=== PATIENT | female | born 1965 | race African-American/Black ===

== ENCOUNTER 2016-11-21 16:11 | Inpatient (IN) | payer OTHER ==
[2016-11-21 16:48] VITALS: BMI 21.6
--- NOTE | 2016-11-21 20:08 | HP ---
Admission ROS [facility] Chief Complaint: SEEKING REHAB SERVICES Allergies/Adverse Reactions: Allergies Allergy/AdvReac Type Severity Reaction Status Date / Time No Known Allergies Allergy Verified 11/21/16 19:28 History of Present Illness: 51 Y.O. FEMALE WITH HISTORY OF ALCOHOL, HEROIN, CRACK-COCAINE AND KLONOPIN DEPENDENCE IS HERE SEEKING REHAB SERVICES. SHE REPORTS SHE LAST COMPLETED DETOX /REHAB IN 2014. SHE IS CURRENTLY ENROLLED IN [facility]. SHE REPORTS HAVING A 3 YR HISTORY OF SOBRIETY. Exam Limitations: No Limitations - Ebola screening Have you traveled outside of the country in the last 21 days: No (N) Have you had contact with anyone from an Ebola affected area: No Have you been sick,other than usual withdrawal symptoms: No Do you have a fever: No - Review of Systems Constitutional: Loss of Appetite, Unintentional Wgt. Loss EENT: reports: Blurred Vision, Double Vision Respiratory: reports: Shortness of Breath Cardiac: reports: Lightheadedness GI: reports: Nausea : reports: No Symptoms Reported Musculoskeletal: reports: Back Pain Integumentary: reports: No Symptoms Reported Neuro: reports: Numbness Endocrine: reports: No Symptoms Reported Hematology: reports: No Symptoms Reported Psychiatric: reports: Mood/Affect Appropiate, Orientated x3, Anxious, Depressed , other (BIPOLAR) Other Systems: Reviewed and Negative Patient History - Patient Medical History Hx Anemia: No Hx Asthma: Yes Hx Chronic Obstructive Pulmonary Disease (COPD): No Hx Cancer: No Hx Cardiac Disorders: No Hx Congestive Heart Failure: No Hx Hypertension: No Hx Hypercholesterolemia: No Hx Pacemaker: No HX Cerebrovascular Accident: No Hx Seizures: Yes (LAST SEZUIRE WAS 6 MONTHS AGO ) Hx Dementia: No Hx Diabetes: No Hx Gastrointestinal Disorders: Yes (GERD ) Hx Liver Disease: No Hx Genitourinary Disorders: No Hx Sexually Transmitted Disorders: No Hx Renal Disease (ESRD): No Hx Thyroid Disease: No Hx Human Immunodeficiency Virus (HIV): No Hx Hepatitis C: Yes Hx Depression: Yes Hx Suicide Attempt: No Hx Bipolar Disorder: Yes Hx Schizophrenia: No - Patient Surgical History Past Surgical History: Yes Hx Section: Yes Anesthesia Reaction: Yes - PPD History Previous Implant?: Yes Documented Results: Negative w/o proof PPD to be Administered?: Yes - Reproductive History Patient is a Female of Child Bearing Age (11 -55 yrs old): Yes Last Menstrual Period: 11/05/15 Patient : No - Smoking Cessation Smoking history: Current every day smoker Have you smoked in the past 12 months: Yes Aproximately how many cigarettes per day: 20 Hx Chewing Tobacco Use: No Initiated information on smoking cessation: Yes 'Breaking Loose' booklet given: 11/21/16 - Substance & Tx. History Hx Alcohol Use: Yes Hx Substance Use: Yes Substance Use Type: Alcohol, Cocaine, Heroin Hx Substance Use Treatment: Yes (DETOX AND REHAB IN 2014) - Substances Abused Alcohol Frequency: Daily Amount used: 1/2 PIND OF LIQUOR Age of first use: 19 Date of Last Use: 11/20/16 Crack Route: Smoking Frequency: Daily Amount used: $100 Age of first use: 21 Date of Last Use: 11/20/16 Heroin Route: Injection Frequency: Daily Amount used: 7 BAGS Age of first use: 21 Date of Last Use: 11/20/16 Benzodiazepine (Klonopin) Route: Oral Frequency: Daily Amount used: UNSURE Age of first use: 21 Date of Last Use: 11/20/16 Family Disease History - Family Disease History Family Disease History: [place]: Grandparent Admission Physical Exam [facility] - Vital Signs Vital Signs: Vital Signs - 24 hr 11/21/16 16:41 Temperature 98.1 F Pulse Rate 60 Respiratory 18 Rate Blood Pressure 100/62 - Physical General Appearance: Yes: Disheveled, Thin HEENTM: Yes: Hearing grossly Normal, Normocephalic, Normal Voice Respiratory: Yes: Chest Non-Tender, Lungs Clear, Normal Breath Sounds, No Respiratory Distress, No Accessory Muscle Use Breast: Yes: Breast Exam Deferred Cardiology: Yes: Regular Rhythm, Regular Rate Abdominal: Yes: Normal Bowel Sounds, Non Tender, Flat Genitourinary: Yes: Other (NO COMPLAINTS REPORTED) Musculoskeletal: Yes: full range of Motion, Gait Steady Extremities: Yes: Normal Capillary Refill, Normal Inspection, Normal Range of Motion, Non-Tender Neurological: Yes: director biology II-XII NML intact, Fully Oriented, Alert, Motor Strength 5/5, Normal Mood/Affect Integumentary: Yes: Normal Color, Dry, Warm Lymphatic: Yes: Within Normal Limits - Diagnostic (1) Asthma Current Visit: Yes Status: Chronic (2) GERD (gastroesophageal reflux disease) Current Visit: Yes Status: Chronic (3) Seizure Current Visit: Yes Status: Chronic (4) Alcohol dependence with uncomplicated withdrawal Current Visit: Yes Status: Chronic (5) Opioid dependence on agonist therapy Current Visit: Yes Status: Chronic (6) Sedative, hypnotic or anxiolytic dependence with withdrawal, uncomplicated Current Visit: Yes Status: Chronic (7) Cannabis dependence, uncomplicated Current Visit: Yes Status: Chronic Cleared for Admission [facility] - Detox or Rehab [facility] Level of Care: Observation Bed Claeared for Rehab Admission: Yes [facility] Breath Alcohol Content Breath Alcohol Content: 0 Urine Pregancy Test - Result Urine Test Results: Negative- NO Line Present Urine Drug Screen - Results Drug Screen Negative: No Urine Drug Screen Results: KEENAN-Cocaine, OPI-Opiates, MTD-Methadone
[2016-11-21] MEDS ORDERED: hydrOXYzine PAMOATE 50 MG CAPSULE (FP) PO PRN (20:29)
[2016-11-21] MEDS ORDERED: guaiFENesin/D-METHORPHAN HB 10 ML UNIT-DOSE CUPS PO PRN (20:29)
[2016-11-21] MEDS ORDERED: LOPERAMIDE HCL 2 MG CAPSULE PO PRN (20:29)
[2016-11-21] MEDS ORDERED: MAGNESIUM CITRATE 300 ML BOTTLE PO PRN (20:29)
[2016-11-21] MEDS ORDERED: MENTHOL/PHENOL 1 EACH UD MM PRN (20:29)
[2016-11-21] MEDS ORDERED: MAGNESIUM HYDROX 2400MG/30ML ORAL SUSPENSION 30 ML CUP PO PRN (20:29)
[2016-11-21] MEDS ORDERED: P-EPHED 60MG/TRIPROLIDI 2.5MG TABLET PO PRN (20:29)
[2016-11-21] MEDS ORDERED: MAG HYDROX/AL HYDROX/SIMETH 30 ML UNIT-DOSE CUP PO PRN (20:29)
[2016-11-21] MEDS ORDERED: NICOTINE POLACRILEX 2 MG GUM BC PRN (20:29)
[2016-11-21] MEDS ORDERED: ACETAMINOPHEN 325 MG TABLET (FP) PO PRN (20:29)
[2016-11-21] MEDS ORDERED: ALBUTEROL SO4 6.7 GM HFA INHALER IH PRN (20:33)
[2016-11-21] MEDS ORDERED: TUBERCULIN PPD 5 TU/0.1ML VIAL ID ONE (23:03)
[2016-11-21] MEDS: THIAMINE HCL 100 MG TABLET (FP) PO SCH (23:07)
[2016-11-21] MEDS: levETIRAcetam 500 MG TABLET (FP) PO SCH (23:07)
[2016-11-22] MEDS ORDERED: PT OWN MED DRAWER 7, Y5N ONE (07:54)
[2016-11-22] MEDS ORDERED: METHADONE HCL 40 MG DISPERSABLE TABLET ONE (08:11)
[2016-11-22] MEDS ORDERED: METHADONE HCL 10 MG TABLET ONE (08:11)
[2016-11-22] MEDS: METHADONE 40 MG, METHADONE 30 MG PO SCH (08:12)
[2016-11-22] MEDS: NICOTINE 21 MG/24 HOURS TOPICAL PATCH TD SCH (09:53)
[2016-11-22] MEDS: levETIRAcetam 500 MG TABLET (FP) PO SCH ×2 (09:53→21:24)
[2016-11-22] MEDS: PRENATAL VITAMINS W/ FOLIC ACID TABLET (FP) PO SCH (09:53)
[2016-11-22] MEDS ORDERED: PNEUMOC 13-VAL CONJ-DIP CRM/PF 0.5 ML DISP.SYRIN IM ONE (12:00)
[2016-11-22 13:44] LABS: MCH 28.7 pg (25.7-33.7); MCHC 32.9 g/dl (32.0-36.0); MEAN CELL VOLUME 87.1 fl (80-96); MEAN PLT VOLUME 9.3 fl (7.5-11.1); PLATELET COUNT 96 K/MM3 (134-434); RDW 13.8 % (11.6-15.6); WHITE BLOOD COUNT 2.8 K/mm3 (4.0-10.0)
[2016-11-22 13:58] LABS: ALBUMIN 2.5 g/dl (3.4-5.0); ANION GAP 6 (8-16); BILIRUBIN,TOTAL 0.5 mg/dL (0.2-1.0); CALCIUM 8.2 mg/dL (8.5-10.1); CO2 29 mmol/L (21-32); CREATININE 0.9 mg/dL (0.55-1.02); GLUCOSE,RANDOM 88 mg/dL (74-106); SGOT/AST 103 U/L (15-37); SGPT/ALT 78 U/L (12-78); TOT PROT 6.3 g/dl (6.4-8.2)
[2016-11-22 13:59] LABS: ALK PHOS 126 U/L (45-117)
[2016-11-22 14:17] LABS: HIV 1 & 2 AB NEGATIVE; HIV 1 AGp24 NEGATIVE
[2016-11-22] MEDS: diphenhydrAMINE HCL 25 MG CAPSULE (FP) PO PRN ×2 (14:27→20:07)
--- NOTE | 2016-11-22 19:47 | PN ---
Ayesha Progress Note Note: Psychiatry Attending's county extension agent note : Met with patient. Ms Davis requests orders for trazodone and citalopram. Patient endorses MDD and chronic insomnia. OPD care provided at [facility] in [facility]. Managed by psychiatrist,Dr Parson. Action : Trazodone 50 mg po hs Celexa 10 mg po daily. Side effects/benefits discussed with patient. She is agreable with [facility].
[2016-11-22] MEDS: traZODone HCL 50 MG TABLET (FP) PO SCH (21:24)
[2016-11-22] MEDS: THIAMINE HCL 100 MG TABLET (FP) PO SCH (21:24)
[2016-11-23] MEDS ORDERED: METHADONE HCL 40 MG DISPERSABLE TABLET ONE (05:56)
[2016-11-23] MEDS ORDERED: METHADONE HCL 10 MG TABLET ONE (05:56)
[2016-11-23] MEDS ORDERED: METHADONE HCL 40 MG DISPERSABLE TABLET PO SCH (06:00)
[2016-11-23] MEDS: diphenhydrAMINE HCL 25 MG CAPSULE (FP) PO PRN ×3 (06:56→19:48)
[2016-11-23] MEDS: METHADONE 40 MG, METHADONE 30 MG PO SCH (06:56)
--- NOTE | 2016-11-23 08:11 | EKG ---
Test Reason : Blood Pressure : / mmHG Vent. Rate : 043 BPM Atrial Rate : 043 BPM P-R Int : 176 ms QRS Dur : 086 ms QT Int : 478 ms P-R-T Axes : 077 064 058 degrees QTc Int : 403 ms MARKED SINUS BRADYCARDIA POSSIBLE LEFT ATRIAL ENLARGEMENT ABNORMAL ECG NO PREVIOUS ECGS AVAILABLE Confirmed by TORSTEN GARCIA MD ([id number]) on 11/23/2016 8:10:55 AM Referred By: Confirmed By:TORSTEN GARCIA MD
[2016-11-23 09:19] LABS: URINE APPEARANCE CLOUDY; URINE BILIRUBIN NEGATIVE (NEGATIVE); URINE BLOOD NEGATIVE (NEGATIVE); URINE COLOR YELLOW; URINE GLUCOSE (UA) NEGATIVE (NEGATIVE); URINE KETONE NEGATIVE (NEGATIVE); URINE LEUK ESTERASE TRACE (NEGATIVE); URINE NITRITE NEGATIVE (NEGATIVE); URINE PROTEIN NEGATIVE (NEGATIVE)
[2016-11-23 09:26] LABS: URINE BACTERIA RARE /hpf (NONE SEEN); URINE RBC 1 /hpf (0-3); URINE WBC 10 /hpf (3-5); YEAST FEW
[2016-11-23] MEDS: NICOTINE 21 MG/24 HOURS TOPICAL PATCH TD SCH (10:01)
[2016-11-23] MEDS: PRENATAL VITAMINS W/ FOLIC ACID TABLET (FP) PO SCH (10:02)
[2016-11-23] MEDS: levETIRAcetam 500 MG TABLET (FP) PO SCH ×2 (10:02→21:24)
[2016-11-23] MEDS: CITALOPRAM HYDROBROMIDE 10 MG TABLET (FP) PO SCH (10:02)
[2016-11-23] MEDS: THIAMINE HCL 100 MG TABLET (FP) PO SCH (21:24)
[2016-11-23] MEDS: traZODone HCL 50 MG TABLET (FP) PO SCH (21:24)
[2016-11-24] MEDS ORDERED: METHADONE HCL 10 MG TABLET ONE (05:42)
[2016-11-24] MEDS ORDERED: METHADONE HCL 40 MG DISPERSABLE TABLET ONE (05:43)
[2016-11-24] MEDS: METHADONE 40 MG, METHADONE 30 MG PO SCH (06:41)
[2016-11-24] MEDS: diphenhydrAMINE HCL 25 MG CAPSULE (FP) PO PRN (08:48)
[2016-11-24] MEDS: CITALOPRAM HYDROBROMIDE 10 MG TABLET (FP) PO SCH (09:49)
[2016-11-24] MEDS: levETIRAcetam 500 MG TABLET (FP) PO SCH ×2 (09:49→21:22)
[2016-11-24] MEDS: NICOTINE 21 MG/24 HOURS TOPICAL PATCH TD SCH (09:50)
[2016-11-24] MEDS: PRENATAL VITAMINS W/ FOLIC ACID TABLET (FP) PO SCH (09:50)
--- NOTE | 2016-11-24 13:22 | HP ---
Psychiatrist Admission - Data Date of interview: 11/24/16 Admission source: [facility] Identifying data: The patient is 51 yo AA female mother of 3 grown children,resides in [address],supported by [facility]. Medical History: Significant for Seizure disorder since 6 yo(head trauma),BA,H/ O Cellulitis,Hep C. Psychiatric History: Reports depressed mood ,anxiety for about 10-11 years .She was admitted to [facility] in 2014 due to severe depression,sleeping difficulties,mood instability.Patient was dx with Bipolar disorder.Patient placed on Zyprexa,Celexa,Trazodone.No more psychiatric hospoitalizations,just ER visits.Patient sees psychiatrist at [facility] in [place].Current medications:Trazodone 150 mg po hs,Celexa 10 mg po daily and Zyprexa 5 mg po hs. Physical/Sexual Abuse/Trauma History: denies Vital Signs: Vital Signs - 24 hr 11/24/16 11/24/16 11/24/16 00:30 03:30 07:28 Temperature 98.0 F Pulse Rate 51 L Respiratory 18 18 18 Rate Blood Pressure 103/71 Allergies/Adverse Reactions: Allergies Allergy/AdvReac Type Severity Reaction Status Date / Time No Known Allergies Allergy Verified 11/21/16 19:28 Date of last physical exam: 11/21/16 Concur with the findings of this exam: Yes - Substance Abuse/Tx History Hx Alcohol Use: Yes (drinking since 19 yo,1/2 pint of vodka daily) Hx Substance Use: Yes (crack/cocaine 21 yo,$100 daily,heroin iv since 30 yo,7 bags daily,klonopin ) Substance Use Type: Alcohol, Cocaine, Opiates, Tranquilizers Hx Substance Use Treatment: Yes (completed inpatient rehab [facility] in 2014 ) - Admission Criteria Previous failed treatment: Yes Poor recovery environment: Yes Comorbidities: Yes Lacks judgement: Yes Mental Status Exam - Mental Status Exam Alert and Oriented to: Time, Place, Person Cognitive Function: Grossly Intact Patient Appearance: Unkempt Mood: Sad, Anxious Affect: Mood Congruent, Labile Patient Behavior: Sedated, Fatigued, Cooperative Speech Pattern: Clear Voice Loudness: Normal Thought Process: Goal Oriented Thought Disorder: Not Present Hallucinations: Denies Suicidal Ideation: Denies Homicidal Ideation: Denies Insight/Judgement: Fair Sleep: Fair Appetite: Fair Muscle strength/Tone: Normal Gait/Station: Normal Psychiatric Findings - Problem List ([place] 1, 2,3) (1) Alcohol dependence with uncomplicated withdrawal Current Visit: Yes Status: Chronic (2) Asthma Current Visit: Yes Status: Chronic (3) Cannabis dependence, uncomplicated Current Visit: Yes Status: Chronic (4) GERD (gastroesophageal reflux disease) Current Visit: Yes Status: Chronic (5) Opioid dependence on agonist therapy Current Visit: Yes Status: Chronic (6) Sedative, hypnotic or anxiolytic dependence with withdrawal, uncomplicated Current Visit: Yes Status: Chronic (7) Bipolar II disorder Current Visit: Yes Status: Chronic - Initial Treatment Plan Initial Treatment Plan: Restart Celexa 10 mg po daily,Zyprexa 5 mg po hs, Trazodone 50 mg po hs.Will monitor progress.
[2016-11-24] MEDS: THIAMINE HCL 100 MG TABLET (FP) PO SCH (21:22)
[2016-11-24] MEDS: traZODone HCL 100 MG TABLET (FP) PO SCH (21:23)
[2016-11-24] MEDS: OLANZapine 5 MG TABLET PO SCH (21:24)
[2016-11-25] MEDS ORDERED: METHADONE HCL 10 MG TABLET ONE (03:04)
[2016-11-25] MEDS ORDERED: METHADONE HCL 40 MG DISPERSABLE TABLET ONE (03:04)
[2016-11-25] MEDS: METHADONE 40 MG, METHADONE 30 MG PO SCH (06:17)
[2016-11-25] MEDS: diphenhydrAMINE HCL 25 MG CAPSULE (FP) PO PRN ×2 (06:19→15:15)
[2016-11-25] MEDS: PRENATAL VITAMINS W/ FOLIC ACID TABLET (FP) PO SCH (09:48)
[2016-11-25] MEDS: levETIRAcetam 500 MG TABLET (FP) PO SCH ×2 (09:48→21:19)
[2016-11-25] MEDS: NICOTINE 21 MG/24 HOURS TOPICAL PATCH TD SCH (09:48)
[2016-11-25] MEDS: CITALOPRAM HYDROBROMIDE 10 MG TABLET (FP) PO SCH (09:49)
[2016-11-25] MEDS: THIAMINE HCL 100 MG TABLET (FP) PO SCH (21:19)
[2016-11-25] MEDS: diphenhydrAMINE HCL 50 MG CAPSULE PO PRN (21:19)
[2016-11-25] MEDS: traZODone HCL 100 MG TABLET (FP) PO SCH (21:20)
[2016-11-25] MEDS: OLANZapine 5 MG TABLET PO SCH (22:30)
[2016-11-26] MEDS ORDERED: METHADONE HCL 10 MG TABLET ONE (03:23)
[2016-11-26] MEDS ORDERED: METHADONE HCL 40 MG DISPERSABLE TABLET ONE (03:23)
[2016-11-26] MEDS: METHADONE 40 MG, METHADONE 30 MG PO SCH (06:56)
[2016-11-26] MEDS: diphenhydrAMINE HCL 25 MG CAPSULE (FP) PO PRN (06:57)
[2016-11-26] MEDS: levETIRAcetam 500 MG TABLET (FP) PO SCH ×2 (10:09→21:23)
[2016-11-26] MEDS: CITALOPRAM HYDROBROMIDE 10 MG TABLET (FP) PO SCH (10:09)
[2016-11-26] MEDS: NICOTINE 21 MG/24 HOURS TOPICAL PATCH TD SCH (10:09)
[2016-11-26] MEDS: PRENATAL VITAMINS W/ FOLIC ACID TABLET (FP) PO SCH (10:10)
--- NOTE | 2016-11-26 15:19 | PN ---
[facility] Progress Note Note: keppra level is 5.8 (low) P : Keppra 500mg po stat
[2016-11-26] MEDS ORDERED: levETIRAcetam 500 MG TABLET (FP) PO ONE (15:43)
[2016-11-26] MEDS: traZODone HCL 100 MG TABLET (FP) PO SCH (21:23)
[2016-11-26] MEDS: THIAMINE HCL 100 MG TABLET (FP) PO SCH (21:23)
[2016-11-26] MEDS: OLANZapine 5 MG TABLET PO SCH (21:24)
[2016-11-26] MEDS: diphenhydrAMINE HCL 50 MG CAPSULE PO PRN (21:24)
[2016-11-27] MEDS ORDERED: METHADONE HCL 40 MG DISPERSABLE TABLET ONE (03:24)
[2016-11-27] MEDS ORDERED: METHADONE HCL 10 MG TABLET ONE (03:24)
[2016-11-27] MEDS: METHADONE 40 MG, METHADONE 30 MG PO SCH (06:16)
[2016-11-27] MEDS: diphenhydrAMINE HCL 25 MG CAPSULE (FP) PO PRN ×2 (06:18→12:39)
[2016-11-27] MEDS: NICOTINE 21 MG/24 HOURS TOPICAL PATCH TD SCH (10:04)
[2016-11-27] MEDS: CITALOPRAM HYDROBROMIDE 10 MG TABLET (FP) PO SCH (10:05)
[2016-11-27] MEDS: levETIRAcetam 500 MG TABLET (FP) PO SCH ×2 (10:05→21:20)
[2016-11-27] MEDS: PRENATAL VITAMINS W/ FOLIC ACID TABLET (FP) PO SCH (10:05)
[2016-11-27] MEDS: traZODone HCL 100 MG TABLET (FP) PO SCH (21:20)
[2016-11-27] MEDS: THIAMINE HCL 100 MG TABLET (FP) PO SCH (21:20)
[2016-11-27] MEDS: diphenhydrAMINE HCL 50 MG CAPSULE PO PRN (21:21)
[2016-11-27] MEDS: OLANZapine 5 MG TABLET PO SCH (21:21)
[2016-11-28] MEDS ORDERED: METHADONE HCL 10 MG TABLET ONE (05:47)
[2016-11-28] MEDS ORDERED: METHADONE HCL 40 MG DISPERSABLE TABLET ONE (05:47)
[2016-11-28] MEDS: METHADONE 40 MG, METHADONE 30 MG PO SCH (06:17)
[2016-11-28] MEDS: diphenhydrAMINE HCL 25 MG CAPSULE (FP) PO PRN (06:19)
[2016-11-28] MEDS: PRENATAL VITAMINS W/ FOLIC ACID TABLET (FP) PO SCH (10:18)
[2016-11-28] MEDS: levETIRAcetam 500 MG TABLET (FP) PO SCH ×2 (10:18→21:29)
[2016-11-28] MEDS: CITALOPRAM HYDROBROMIDE 10 MG TABLET (FP) PO SCH (10:18)
[2016-11-28] MEDS: NICOTINE 21 MG/24 HOURS TOPICAL PATCH TD SCH (10:18)
--- NOTE | 2016-11-28 14:22 | PN ---
Psychiatric Progress Note Vital Signs: Vital Signs Period Temp Pulse Resp BP Sys/Caceres Pulse Ox Last 24 Hr 98.1 F 65 18-18 96/62 Date of Session: 11/28/16 Chief Complaint:: Sleep is still big issue,makes me anxious,torres. HPI: Patient addressed Alcohol,Cannabis,Opioid dependence comorbid with Bipolar II disorder. ROS: BA,GERD. Current Medications: Active Medications Generic Name Dose Route Start Last Admin Trade Name Freq PRN Reason Stop Dose Admin Acetaminophen 650 mg 11/21/16 20:29 Tylenol - PO Q4H PRN PAIN Al Hydroxide/Mg Hydroxide 30 ml 11/21/16 20:29 11/28/16 08:40 Mylanta Oral Suspension - PO 30 ml Q6H PRN Administration DYSPEPSIA Albuterol Sulfate 2 puff 11/21/16 20:33 Ventolin Hfa Inhaler - IH Q4H PRN SHORT OF BREATH/WHEEZING Citalopram Hydrobromide 10 mg 11/23/16 10:00 11/28/16 10:18 Celexa - PO 10 mg DAILY KYM Administration Diphenhydramine HCl 50 mg 11/21/16 20:29 11/27/16 21:21 Benadryl - PO 50 mg HSMR1 PRN Administration INSOMNIA Diphenhydramine HCl 25 mg 11/22/16 14:02 11/28/16 06:19 Benadryl - PO 25 mg Q6H PRN Administration FOR ITCHING Eucalyptus/Menthol/Phenol/Sorbitol 1 each 11/21/16 20:29 Cepastat Lozenge - MM Q4H PRN SORE THROAT Guaifenesin 10 ml 11/21/16 20:29 Robitussin Dm - PO Q6H PRN COUGH Hydroxyzine Pamoate 50 mg 11/21/16 20:29 Vistaril - PO Q4H PRN AGITATION Ibuprofen 400 mg 11/21/16 20:29 Motrin - PO Q6H PRN SEVERE PAIN Levetiracetam 500 mg 11/21/16 22:00 11/28/16 10:18 Keppra - PO 500 mg BID KYM Administration Loperamide HCl 4 mg 11/21/16 20:29 Imodium - PO Q6H PRN DIARRHEA Magnesium Citrate 300 ml 11/21/16 20:29 Citroma - PO Q48H PRN CONSTIPATION Magnesium Hydroxide 30 ml 11/21/16 20:29 Milk Of Magnesia - PO DAILY PRN CONSTIPATION Methadone HCl 40 mg/ Methadone 70 mg 11/29/16 06:00 HCl 30 mg PO 12/05/16 05:59 DAILY@0600 KYM Nicotine 21 mg 11/22/16 10:00 11/28/16 10:18 Nicoderm Patch - TD 21 mg DAILY KYM Administration Nicotine Polacrilex 2 mg 11/21/16 20:29 Nicorette Gum - BC Q2H PRN NICOTINE REPLACEMENT RX Olanzapine 5 mg 11/24/16 22:00 11/27/16 21:21 Zyprexa - PO 5 mg HS KYM Administration Pantoprazole Sodium 40 mg 11/28/16 14:30 Protonix - PO DAILY KYM Multivit/Folic Acid/Iron 1 tab 11/22/16 10:00 11/28/16 10:18 Vitamins (Sjr) - PO 1 tab DAILY KYM Administration Pseudoephedrine/Triprolidine 1 combo 11/21/16 20:29 Actifed - PO TID PRN NASAL CONGESTION Thiamine HCl 100 mg 11/21/16 22:00 11/27/16 21:20 Vitamin B1 - PO 100 mg HS KYM Administration Trazodone HCl 100 mg 11/24/16 22:00 11/27/16 21:20 Desyrel - PO 100 mg HS KYM Administration Current Side Effect: No Lab tests ordered: No Lab tests reviewed: Yes Provider note:: Chart was revuwed,patient was seen in my office to address ongoing mood instability and sleeping diificulties as a result of interrupted sleep pattern.Properties of Zyprexa has been discussed with the patient including benefits,side effects and dose adjustment.Zyprexa 5 mg po hs will be adjusted to 10 mg po hs and Trazodone 100 mg po hs will be adjusted to 150 mg po hs. Supportive therapy,psychoeducation has been provided. Total face to face time:: 25 Mental Status Exam - Mental Status Exam Alert and Oriented to: Time, Place, Person Cognitive Function: Grossly Intact Patient Appearance: Well Groomed Mood: Anxious Affect: Mood Congruent, Labile Patient Behavior: Appropriate, Cooperative Speech Pattern: Clear Voice Loudness: Normal Thought Process: Goal Oriented Thought Disorder: Not Present Hallucinations: Denies Suicidal Ideation: Denies Homicidal Ideation: Denies Insight/Judgement: Fair Sleep: Fair Appetite: Fair Muscle strength/Tone: Normal Gait/Station: Normal Psychiatric Treatment Plan - Problem List (1) Alcohol dependence with uncomplicated withdrawal Current Visit: Yes (2) Asthma Current Visit: Yes (3) Cannabis dependence, uncomplicated Current Visit: Yes (4) GERD (gastroesophageal reflux disease) Current Visit: Yes (5) Opioid dependence on agonist therapy Current Visit: Yes (6) Sedative, hypnotic or anxiolytic dependence with withdrawal, uncomplicated Current Visit: Yes (7) Bipolar II disorder Current Visit: Yes
[2016-11-28] MEDS: PANTOPRAZOLE 40 MG TABLET (FP) PO SCH (15:05)
[2016-11-28] MEDS: IBUPROFEN 400 MG TABLET (FP) PO PRN (18:59)
[2016-11-28] MEDS: THIAMINE HCL 100 MG TABLET (FP) PO SCH (21:29)
[2016-11-28] MEDS: OLANZapine 10 MG TABLET PO SCH (21:30)
[2016-11-28] MEDS: traZODone HCL 50 MG TABLET (FP) PO SCH (21:30)
[2016-11-28] MEDS: diphenhydrAMINE HCL 50 MG CAPSULE PO PRN (21:30)
[2016-11-29] MEDS ORDERED: METHADONE HCL 10 MG TABLET ONE (06:03)
[2016-11-29] MEDS ORDERED: METHADONE HCL 40 MG DISPERSABLE TABLET ONE (06:03)
[2016-11-29] MEDS: METHADONE 40 MG, METHADONE 30 MG PO SCH (06:23)
[2016-11-29] MEDS: diphenhydrAMINE HCL 25 MG CAPSULE (FP) PO PRN (06:24)
[2016-11-29] MEDS: NICOTINE 21 MG/24 HOURS TOPICAL PATCH TD SCH (09:43)
[2016-11-29] MEDS: PRENATAL VITAMINS W/ FOLIC ACID TABLET (FP) PO SCH (09:44)
[2016-11-29] MEDS: CITALOPRAM HYDROBROMIDE 10 MG TABLET (FP) PO SCH (09:44)
[2016-11-29] MEDS: levETIRAcetam 500 MG TABLET (FP) PO SCH ×2 (09:44→21:07)
[2016-11-29] MEDS: PANTOPRAZOLE 40 MG TABLET (FP) PO SCH (09:44)
[2016-11-29] MEDS: IBUPROFEN 400 MG TABLET (FP) PO PRN ×2 (11:51→21:07)
[2016-11-29] MEDS: diphenhydrAMINE HCL 50 MG CAPSULE PO PRN (21:07)
[2016-11-29] MEDS: OLANZapine 10 MG TABLET PO SCH (21:07)
[2016-11-29] MEDS: traZODone HCL 50 MG TABLET (FP) PO SCH (21:07)
[2016-11-29] MEDS: THIAMINE HCL 100 MG TABLET (FP) PO SCH (21:07)
[2016-11-30] MEDS ORDERED: METHADONE HCL 40 MG DISPERSABLE TABLET ONE (03:09)
[2016-11-30] MEDS ORDERED: METHADONE HCL 10 MG TABLET ONE (03:09)
[2016-11-30] MEDS: diphenhydrAMINE HCL 25 MG CAPSULE (FP) PO PRN ×2 (06:27→14:58)
[2016-11-30] MEDS: METHADONE 40 MG, METHADONE 30 MG PO SCH (06:27)
[2016-11-30] MEDS: IBUPROFEN 400 MG TABLET (FP) PO PRN ×3 (08:33→21:21)
[2016-11-30] MEDS: NICOTINE 21 MG/24 HOURS TOPICAL PATCH TD SCH (09:11)
[2016-11-30] MEDS: PRENATAL VITAMINS W/ FOLIC ACID TABLET (FP) PO SCH (09:11)
[2016-11-30] MEDS: CITALOPRAM HYDROBROMIDE 10 MG TABLET (FP) PO SCH (09:12)
[2016-11-30] MEDS: PANTOPRAZOLE 40 MG TABLET (FP) PO SCH (09:12)
[2016-11-30] MEDS: levETIRAcetam 500 MG TABLET (FP) PO SCH ×2 (09:12→21:19)
[2016-11-30] MEDS: OLANZapine 10 MG TABLET PO SCH (21:19)
[2016-11-30] MEDS: THIAMINE HCL 100 MG TABLET (FP) PO SCH (21:19)
[2016-11-30] MEDS: traZODone HCL 50 MG TABLET (FP) PO SCH (21:19)
[2016-11-30] MEDS: diphenhydrAMINE HCL 50 MG CAPSULE PO PRN (21:20)
[2016-12-01] MEDS ORDERED: METHADONE HCL 40 MG DISPERSABLE TABLET ONE (03:16)
[2016-12-01] MEDS ORDERED: METHADONE HCL 10 MG TABLET ONE (03:16)
[2016-12-01] MEDS: METHADONE 40 MG, METHADONE 30 MG PO SCH (06:29)
[2016-12-01] MEDS: diphenhydrAMINE HCL 25 MG CAPSULE (FP) PO PRN ×2 (06:30→13:27)
[2016-12-01] MEDS: IBUPROFEN 400 MG TABLET (FP) PO PRN ×3 (06:30→21:28)
[2016-12-01] MEDS: levETIRAcetam 500 MG TABLET (FP) PO SCH ×2 (10:12→21:26)
[2016-12-01] MEDS: PRENATAL VITAMINS W/ FOLIC ACID TABLET (FP) PO SCH (10:12)
[2016-12-01] MEDS: NICOTINE 21 MG/24 HOURS TOPICAL PATCH TD SCH (10:12)
[2016-12-01] MEDS: PANTOPRAZOLE 40 MG TABLET (FP) PO SCH (10:12)
[2016-12-01] MEDS: CITALOPRAM HYDROBROMIDE 10 MG TABLET (FP) PO SCH (10:13)
[2016-12-01] MEDS: traZODone HCL 50 MG TABLET (FP) PO SCH (21:26)
[2016-12-01] MEDS: diphenhydrAMINE HCL 50 MG CAPSULE PO PRN (21:26)
[2016-12-01] MEDS: THIAMINE HCL 100 MG TABLET (FP) PO SCH (21:26)
[2016-12-01] MEDS: OLANZapine 10 MG TABLET PO SCH (21:26)
[2016-12-02] MEDS ORDERED: METHADONE HCL 10 MG TABLET ONE (05:53)
[2016-12-02] MEDS ORDERED: METHADONE HCL 40 MG DISPERSABLE TABLET ONE (05:53)
[2016-12-02] MEDS: METHADONE 40 MG, METHADONE 30 MG PO SCH (06:46)
[2016-12-02] MEDS: diphenhydrAMINE HCL 25 MG CAPSULE (FP) PO PRN (06:46)
[2016-12-02] MEDS: CITALOPRAM HYDROBROMIDE 10 MG TABLET (FP) PO SCH (10:04)
[2016-12-02] MEDS: NICOTINE 21 MG/24 HOURS TOPICAL PATCH TD SCH (10:04)
[2016-12-02] MEDS: PANTOPRAZOLE 40 MG TABLET (FP) PO SCH (10:04)
[2016-12-02] MEDS: PRENATAL VITAMINS W/ FOLIC ACID TABLET (FP) PO SCH (10:04)
[2016-12-02] MEDS: levETIRAcetam 500 MG TABLET (FP) PO SCH ×2 (10:04→21:30)
[2016-12-02] MEDS: IBUPROFEN 400 MG TABLET (FP) PO PRN (10:06)
[2016-12-02] MEDS: traZODone HCL 50 MG TABLET (FP) PO SCH (21:30)
[2016-12-02] MEDS: OLANZapine 10 MG TABLET PO SCH (21:30)
[2016-12-02] MEDS: diphenhydrAMINE HCL 50 MG CAPSULE PO PRN (21:30)
[2016-12-02] MEDS: THIAMINE HCL 100 MG TABLET (FP) PO SCH (21:30)
[2016-12-03] MEDS ORDERED: METHADONE HCL 40 MG DISPERSABLE TABLET ONE (03:14)
[2016-12-03] MEDS ORDERED: METHADONE HCL 10 MG TABLET ONE (03:14)
[2016-12-03] MEDS: METHADONE 40 MG, METHADONE 30 MG PO SCH (06:12)
[2016-12-03] MEDS: diphenhydrAMINE HCL 25 MG CAPSULE (FP) PO PRN (06:12)
[2016-12-03] MEDS: CITALOPRAM HYDROBROMIDE 10 MG TABLET (FP) PO SCH (09:52)
[2016-12-03] MEDS: levETIRAcetam 500 MG TABLET (FP) PO SCH ×2 (09:52→21:28)
[2016-12-03] MEDS: PANTOPRAZOLE 40 MG TABLET (FP) PO SCH (09:53)
[2016-12-03] MEDS: PRENATAL VITAMINS W/ FOLIC ACID TABLET (FP) PO SCH (09:53)
[2016-12-03] MEDS: NICOTINE 21 MG/24 HOURS TOPICAL PATCH TD SCH (09:53)
[2016-12-03] MEDS: diphenhydrAMINE HCL 50 MG CAPSULE PO PRN (21:28)
[2016-12-03] MEDS: traZODone HCL 50 MG TABLET (FP) PO SCH (21:28)
[2016-12-03] MEDS: THIAMINE HCL 100 MG TABLET (FP) PO SCH (21:28)
[2016-12-03] MEDS: OLANZapine 10 MG TABLET PO SCH (21:28)
[2016-12-03] MEDS: IBUPROFEN 400 MG TABLET (FP) PO PRN (21:29)
[2016-12-04] MEDS ORDERED: METHADONE HCL 10 MG TABLET ONE (03:14)
[2016-12-04] MEDS ORDERED: METHADONE HCL 40 MG DISPERSABLE TABLET ONE (03:14)
[2016-12-04] MEDS: IBUPROFEN 400 MG TABLET (FP) PO PRN (06:22)
[2016-12-04] MEDS: diphenhydrAMINE HCL 25 MG CAPSULE (FP) PO PRN (06:22)
[2016-12-04] MEDS: METHADONE 40 MG, METHADONE 30 MG PO SCH (06:22)
[2016-12-04 09:21] VITALS: TEMP 97.8
[2016-12-04] MEDS: CITALOPRAM HYDROBROMIDE 10 MG TABLET (FP) PO SCH (10:09)
[2016-12-04] MEDS: PANTOPRAZOLE 40 MG TABLET (FP) PO SCH (10:09)
[2016-12-04] MEDS: levETIRAcetam 500 MG TABLET (FP) PO SCH ×2 (10:09→21:27)
[2016-12-04] MEDS: PRENATAL VITAMINS W/ FOLIC ACID TABLET (FP) PO SCH (10:09)
[2016-12-04] MEDS: NICOTINE 21 MG/24 HOURS TOPICAL PATCH TD SCH (10:09)
[2016-12-04] MEDS: THIAMINE HCL 100 MG TABLET (FP) PO SCH (21:27)
[2016-12-04] MEDS: OLANZapine 10 MG TABLET PO SCH (21:27)
[2016-12-04] MEDS: traZODone HCL 50 MG TABLET (FP) PO SCH (21:27)
[2016-12-04] MEDS: diphenhydrAMINE HCL 50 MG CAPSULE PO PRN (21:27)
[2016-12-05] MEDS ORDERED: METHADONE HCL 40 MG DISPERSABLE TABLET ONE (03:28)
[2016-12-05] MEDS ORDERED: METHADONE HCL 10 MG TABLET ONE (03:28)
[2016-12-05] MEDS ORDERED: METHADONE HCL 10 MG TABLET PO SCH (06:00)
[2016-12-05] MEDS ORDERED: METHADONE 40 MG, METHADONE 30 MG PO SCH (06:00)
[2016-12-05] MEDS: IBUPROFEN 400 MG TABLET (FP) PO PRN (06:12)
[2016-12-05] MEDS: diphenhydrAMINE HCL 25 MG CAPSULE (FP) PO PRN (06:12)
[2016-12-05 06:50] VITALS: BP 123/87; PULSE 59
--- NOTE | 2016-12-05 08:55 | PN ---
Psychiatric Progress Note Vital Signs: Vital Signs Period Temp Pulse Resp BP Sys/Caceres Pulse Ox Last 24 Hr 97.8 F-97.8 F 57-62 16-18 95-123/62-87 Date of Session: 12/05/16 Chief Complaint:: Discharge visit HPI: Patient addressed alcohol,opioid,sedative,cannabis dependence comorbid with bipolar II disorder. ROS: BA,GERD. Current Medications: Active Medications Generic Name Dose Route Start Last Admin Trade Name Freq PRN Reason Stop Dose Admin Acetaminophen 650 mg 11/21/16 20:29 12/04/16 08:35 Tylenol - PO 650 mg Q4H PRN Administration PAIN Al Hydroxide/Mg Hydroxide 30 ml 11/21/16 20:29 11/28/16 08:40 Mylanta Oral Suspension - PO 30 ml Q6H PRN Administration DYSPEPSIA Albuterol Sulfate 2 puff 11/21/16 20:33 Ventolin Hfa Inhaler - IH Q4H PRN SHORT OF BREATH/WHEEZING Citalopram Hydrobromide 10 mg 11/23/16 10:00 12/04/16 10:09 Celexa - PO 10 mg DAILY KYM Administration Diphenhydramine HCl 50 mg 11/21/16 20:29 12/04/16 21:27 Benadryl - PO 50 mg HSMR1 PRN Administration INSOMNIA Diphenhydramine HCl 25 mg 11/22/16 14:02 12/05/16 06:12 Benadryl - PO 25 mg Q6H PRN Administration FOR ITCHING Eucalyptus/Menthol/Phenol/Sorbitol 1 each 11/21/16 20:29 Cepastat Lozenge - MM Q4H PRN SORE THROAT Guaifenesin 10 ml 11/21/16 20:29 Robitussin Dm - PO Q6H PRN COUGH Hydroxyzine Pamoate 50 mg 11/21/16 20:29 Vistaril - PO Q4H PRN AGITATION Ibuprofen 400 mg 11/21/16 20:29 12/05/16 06:12 Motrin - PO 400 mg Q6H PRN Administration SEVERE PAIN Levetiracetam 500 mg 11/21/16 22:00 12/04/16 21:27 Keppra - PO 500 mg BID KYM Administration Loperamide HCl 4 mg 11/21/16 20:29 Imodium - PO Q6H PRN DIARRHEA Magnesium Citrate 300 ml 11/21/16 20:29 Citroma - PO Q48H PRN CONSTIPATION Magnesium Hydroxide 30 ml 11/21/16 20:29 Milk Of Magnesia - PO DAILY PRN CONSTIPATION Methadone HCl 40 mg/ Methadone 70 mg 12/05/16 06:00 12/05/16 06:11 HCl 30 mg PO 12/11/16 05:59 70 mg DAILY@0600 KYM Administration Nicotine 21 mg 11/22/16 10:00 12/04/16 10:09 Nicoderm Patch - TD 21 mg DAILY KYM Administration Nicotine Polacrilex 2 mg 11/21/16 20:29 Nicorette Gum - BC Q2H PRN NICOTINE REPLACEMENT RX Olanzapine 10 mg 11/28/16 22:00 12/04/16 21:27 Zyprexa - PO 10 mg HS KYM Administration Pantoprazole Sodium 40 mg 11/28/16 14:30 12/04/16 10:09 Protonix - PO 40 mg DAILY KYM Administration Multivit/Folic Acid/Iron 1 tab 11/22/16 10:00 12/04/16 10:09 Vitamins (Sjr) - PO 1 tab DAILY KYM Administration Pseudoephedrine/Triprolidine 1 combo 11/21/16 20:29 Actifed - PO TID PRN NASAL CONGESTION Thiamine HCl 100 mg 11/21/16 22:00 12/04/16 21:27 Vitamin B1 - PO 100 mg HS KYM Administration Trazodone HCl 150 mg 11/28/16 22:00 12/04/16 21:27 Desyrel - PO 150 mg HS KYM Administration Current Side Effect: No Lab tests ordered: No Lab tests reviewed: Yes Provider note:: Patient completed this program today.She has met he treatment goals and will continue to address her issues on [place], [place].Patient reports finding Trazodone 150 mg po hs,Zyprexa 10 mg po hs and Celexa 10 mg po daily helps her to cope with anxiety,depression,mood instability.Scripts for 30 days supply of the above medications proivided. Patient identifies behaviors whicn contribute to relapse and skills,support she can utilize to maintain recovery.. Patient is stable for discharge today. Total face to face time:: 30 Mental Status Exam - Mental Status Exam Alert and Oriented to: Time, Place, Person Cognitive Function: Grossly Intact Patient Appearance: Well Groomed Mood: Hopeful, Euthymic Affect: Mood Congruent Patient Behavior: Cooperative Speech Pattern: Clear Voice Loudness: Normal Thought Process: Goal Oriented Thought Disorder: Not Present Hallucinations: Denies Suicidal Ideation: Denies Homicidal Ideation: Denies Insight/Judgement: Fair Sleep: Fair Appetite: Good Muscle strength/Tone: Normal Gait/Station: Normal
[2016-12-05] MEDS: levETIRAcetam 500 MG TABLET (FP) PO SCH (09:03)
[2016-12-05] MEDS: CITALOPRAM HYDROBROMIDE 10 MG TABLET (FP) PO SCH (09:03)
[2016-12-05] MEDS: NICOTINE 21 MG/24 HOURS TOPICAL PATCH TD SCH (09:03)
[2016-12-05] MEDS: PANTOPRAZOLE 40 MG TABLET (FP) PO SCH (09:03)
[2016-12-05] MEDS: PRENATAL VITAMINS W/ FOLIC ACID TABLET (FP) PO SCH (09:03)
== END 2016-12-05 10:15 | disposition home or self-care (01) | DRG 772 ==
LOC: YASAS 16:11 → Y3E 20:36
PROVIDERS: ADMIT Psychiatry & Neurology Psychiatry; ATTEND Psychiatry & Neurology Psychiatry
PROC: HZ42ZZZ Group Counseling for Substance Abuse Treatment, Cognitive-Behavioral (ICD-10-PCS; principal; 2016-11-21)
DX: F11.20 Opioid dependence, uncomplicated (principal); F13.20 Sedative, hypnotic or anxiolytic dependence, uncomplicated; F10.20 Alcohol dependence, uncomplicated; F12.20 Cannabis dependence, uncomplicated; F17.210 Nicotine dependence, cigarettes, uncomplicated; F31.81 Bipolar II disorder; J45.909 Unspecified asthma, uncomplicated; K21.9 Gastro-esophageal reflux disease without esophagitis; G40.909 Epilepsy, unspecified, not intractable, without status epilepticus
CPT/HCPCS: 36415; 80053; 81003; 81015; 85027; 86593; 87389; 90670; 93005; 93010